=== PATIENT | female | born 1960 | race Caucasian/White ===

== ENCOUNTER 2016-04-26 12:26 | Outpatient (CLI) ==
[2016-04-26 12:46] LABS: BASOPHILS % (AUTO) 0.5 % (0.0-3.0); EOSINOPHILS # (AUTO) 0.1 K/ul (0.0-0.7); EOSINOPHILS % (AUTO) 1.7 % (0.0-7.0); HEMATOCRIT 43.1 % (37.0-47.0); HEMOGLOBIN 14.7 g/dl (12.0-16.0); IMMATURE GRANULOCYTE % (AUTO) 0.3 % (0.0-5.0); LYMPHOCYTES # (AUTO) 1.1 K/uL (0.60-3.4); LYMPHOCYTES % (AUTO) 16.1 (10.0-50.0); MEAN CORPUSCULAR HGB CONC 34.1 (31.8-35.4); MEAN CORPUSCULAR VOLUME 90.9 fl (81.0-99.0); MONOCYTES # (AUTO) 0.5 K/uL (0.4-2.0); MONOCYTES % (AUTO) 6.8 (0-10); NEUTROPHILS % (AUTO) 74.6; PLATELET COUNT 180 10^3/uL (140-440); RED BLOOD COUNT 4.74 10^6/ul (4.20-5.40); WHITE BLOOD COUNT 6.63 K/ul (4.6-10.2)
[2016-04-26 13:15] LABS: ALBUMIN/GLOBULIN RATIO 1.18; ANION GAP 14.5; BILIRUBIN,TOTAL 0.74 mg/dL (0.00-1.20); BUN/CREATININE RATIO 14.58; CALCIUM 9.5 mg/dL (8.2-10.2); CREATININE 0.96 mg/dL (0.60-1.30); POTASSIUM 3.5 mmol/L (3.5-5.10); TOTAL PROTEIN 7.4 g/dL (6.4-8.2)
== END 2016-04-26 12:27 | disposition home or self-care (01) ==
LOC: LAB 12:26
PROVIDERS: ATTEND Family Medicine
DX: R53.81 Other malaise (principal); R53.83 Other fatigue
CPT/HCPCS: 36415; 80053; 85025

== ENCOUNTER 2016-11-14 06:39 | Day surgery (SDC) ==
[2016-11-14] MEDS ORDERED: LIDOCAINE 1% 20 ML MDV ID ONE (07:23)
[2016-11-14] MEDS ORDERED: DIPRIVAN 20 ML VIAL IVP ONE (08:15)
[2016-11-14] MEDS ORDERED: VERSED ONE (08:15)
[2016-11-14 09:43] VITALS: BP 126/77; TEMP 97.4
--- NOTE | 2016-11-15 13:20 | OP ---
INDICATIONS FOR PROCEDURE: 56 year old female presents for colonoscopy exam. She has a past history of polyp found on colonoscopy 5 years ago unknown histology. MEDICATIONS: SEE ANESTHESIA NOTES. PROCEDURE: COLONOSCOPY. REPORT: The risks, benefits, alternatives and limitations were discussed in detail with the patient. Informed consent was obtained. After adequate sedation was achieved, a digital rectal exam revealed good tone, no masses. The colonoscope was introduced into the rectum and advanced under direct visual guidance to the cecum. The cecum was identified by the appendiceal orifice and IC valve. I then slowly withdrew the scope in circumferential manner and examined the mucosa quite carefully. I looked on the proximal and distal sides of the fold and flexures as best as possible. I was able to retroflex the scope in the right colon and left colon to increase visualization. The clonic mucosa was unremarkable it's entire length except for the few diverticuli scattered throughout the sigmoid colon. No other abnormalities were noted included on retroflex view of the anal canal. The prep was good and the withdraw time was 9 minutes and 0 seconds. The patient tolerated the procedure well with stable vital signs and pulse oximetry throughout. IMPRESSION: 1. Mild diverticulosis RECOMMENDATIONS: 1. High fiber diet 2. Office visit as needed 3. Consider colon screening examination again in 10 years or sooner if there are any signs or symptoms to indicate otherwise CC: Dr. Mercer. SELENA
== END 2016-11-14 09:27 | disposition home or self-care (01) ==
LOC: SURG 06:39
PROVIDERS: ATTEND Internal Medicine Gastroenterology
DX: Z09 Encounter for follow-up examination after completed treatment for conditions other than malignant neoplasm (principal); Z86.010 Personal history of colon polyps; K57.30 Diverticulosis of large intestine without perforation or abscess without bleeding

== ENCOUNTER 2017-07-27 06:24 | Outpatient (CLI) | END 2017-07-27 06:25 | disposition home or self-care (01) | LOC: LAB 06:24 | PROVIDERS: ATTEND Family Medicine | DX: E11.9 Type 2 diabetes mellitus without complications (principal); E78.5 Hyperlipidemia, unspecified; I10 Essential (primary) hypertension; Z00.00 Encounter for general adult medical examination without abnormal findings | CPT/HCPCS: 36415; 80053; 80061; 82043; 82306; 83036; 84443; 85025 ==

== ENCOUNTER 2017-08-09 10:20 | Outpatient (CLI) | payer OTHER | END 2017-08-09 10:21 | disposition home or self-care (01) | LOC: RAD 10:20 | PROVIDERS: ATTEND Family Medicine | DX: Z12.31 Encounter for screening mammogram for malignant neoplasm of breast (principal) | CPT/HCPCS: 77067 ==

== ENCOUNTER 2018-01-16 09:24 | Outpatient (CLI) | END 2018-01-16 09:25 | disposition home or self-care (01) | LOC: LAB 09:24 | PROVIDERS: ATTEND Family Medicine | DX: E11.9 Type 2 diabetes mellitus without complications (principal); Z00.00 Encounter for general adult medical examination without abnormal findings | CPT/HCPCS: 36415; 80048; 83036; 86803 ==

== ENCOUNTER 2018-08-07 12:33 | Outpatient (CLI) ==
--- NOTE | 2018-08-07 13:07 | DI ---
EXAM: Cervical spine seven views, including oblique views and flexion and extension lateral views HISTORY: Neck pain COMPARISON: None TECHNIQUE: Seven views cervical spine were performed, including oblique views and flexion and extens ion lateral views FINDINGS: C7 is obscured on the lateral view. Visualized vertebral bodies normal height. No fractu re. No subluxation. Intervertebral disc spaces maintained. Mild multilevel uncovertebral hypertrop hy. Straightening of the normal cervical lordosis in neutral position. No spondylolisthesis in neut ral position or with flexion or extension. Mild multilevel bilateral neural foraminal narrowing. IMPRESSION: 1. Mild chronic discogenic degenerative disease. 2. No spondylolisthesis. No segment instability. 3. Straightening of the normal cervical lordosis.
== END 2018-08-07 12:34 | disposition home or self-care (01) ==
LOC: RAD 12:33
PROVIDERS: ATTEND Family Medicine
DX: M54.2 Cervicalgia (principal)

== ENCOUNTER 2018-08-21 09:06 | Outpatient (CLI) | payer OTHER ==
--- NOTE | 2018-08-21 10:10 | MAMMO ---
EXAM: Bilateral digital screening mammogram (2-D and 3-D) History: Screening Comparison: Bilateral mammogram 08/09/2017 Findings: MLO and CC views of bilateral breasts demonstrate scattered fibroglandular breast parenchy ma. CAD was reviewed by the radiologist. Tomosynthesis was performed. There are no dominant masses , no suspicious microcalcifications and no architectural distortions. Impression: Stable negative mammogram. Recommend followup routine screening mammography in 1 year. BI-RADS 1, negative
== END 2018-08-21 09:07 | disposition home or self-care (01) ==
LOC: RAD 09:06
PROVIDERS: ATTEND Family Medicine
DX: Z12.31 Encounter for screening mammogram for malignant neoplasm of breast (principal)